=== PATIENT | female | born 1980 | race Hispanic/Latino ===

== ENCOUNTER 2019-08-02 11:20 | Emergency (ER) | payer SELFPAY ==
[2019-08-02] MEDS ORDERED: Acetaminophen 500 MG TAB ONE ×2 (11:55→11:56)
[2019-08-02] MEDS ORDERED: Ketorolac Tromethamine 60 MG/2 ML VIAL ONE (11:55)
== END 2019-08-02 12:40 | disposition home or self-care (01) ==
LOC: ERS 11:20
DX: K05.10 Chronic gingivitis, plaque induced (principal); K08.89 Other specified disorders of teeth and supporting structures; I10 Essential (primary) hypertension
CPT/HCPCS: 96372; 99282; J1885